=== PATIENT | male | born 1970 | race Caucasian/White ===

== ENCOUNTER 2018-07-28 18:56 | Emergency (ER) | payer OTHER ==
[~2018-07-28] VITALS: Wt 117.0 kg
[2018-07-28] MEDS ORDERED: LORAZEPAM 2 MG INJ IM STA (22:19)
--- NOTE | 2018-07-28 23:06 | ERD ---
ER Documentation Chief Complaint Chief Complaint PT STATES HI HPI 48-year-old man with a history of psychiatric illness including anxiety kicked out of his boarding care facility for leaving his bedroom after 8 PM, which is seems his against the facilities rules. He denies suicidal homicidal ideation, no fevers or chills, no chest pain or shortness of breath. Patient states he is compliant with his medications. ROS All systems reviewed and are negative except as per history of present illness. Medications Home Meds Reported Medications Lurasidone Hcl (LATUDA) 80 Mg Tablet, 80 MG PO DAILY, #30 TAB 07/29/18 Multivitamins* (Theragran*) 1 Tab Tab, 1 TAB PO DAILY, TAB 07/29/18 Divalproex Sodium* (Divalproex Sodium*) 500 Mg Tablet.dr, 500 MG PO QID, #120 TAB 07/29/18 Benztropine Mesylate* (Cogentin*) Unknown Strength Tab, PO BID, TAB 07/29/18 Aspirin Ec (Aspir 81) 81 Mg Tablet.dr, 81 MG PO DAILY, #30 TAB 07/29/18 Metformin* (Glucophage*) 1,000 Mg Tablet, 1000 MG PO BID, #60 TAB 07/29/18 Allergies Allergies: Coded Allergies: No Known Allergy (Unverified , 07/28/18) PMhx/Soc Anxiety FmHx Family History: No diabetes Physical Exam Vitals Vital Signs Date Temp Pulse Resp B/P (MAP) Pulse Ox O2 O2 Flow FiO2 Time Delivery Rate 07/28/18 97.2 97 18 157/93 99 19:20 (114) Physical Exam Const: Anxious, afebrile Head: Atraumatic Eyes: Normal Conjunctiva ENT: Normal External Ears, Nose and Mouth. Neck: Full range of motion. No meningismus. Resp: Clear to auscultation bilaterally Cardio: Regular rate and rhythm, no murmurs Abd: Soft, non tender, non distended. Normal bowel sounds Skin: No petechiae or rashes Back: No midline or flank tenderness Ext: No cyanosis, or edema Neur: Awake and alert x3, no focal deficits or facial asymmetry Psych: Anxious Result Diagram: 07/28/18223507/28/182235 Results 24 hrs Laboratory Tests Test 07/28/18 22:36 07/28/18 22:50 White Blood Count 12.1 10^3/ul Red Blood Count 4.75 10^6/ul Hemoglobin 15.0 g/dl Hematocrit 43.1 % Mean Corpuscular Volume 90.7 fl Mean Corpuscular Hemoglobin 31.6 pg Mean Corpuscular Hemoglobin Concent 34.8 g/dl Red Cell Distribution Width 11.9 % Platelet Count 233 10^3/UL Mean Platelet Volume 9.8 fl Immature Granulocytes % 0.900 % Neutrophils % 69.3 % Lymphocytes % 21.2 % Monocytes % 6.6 % Eosinophils % 1.6 % Basophils % 0.4 % Nucleated Red Blood Cells % 0.0 /100WBC Immature Granulocytes # 0.110 10^3/ul Neutrophils # 8.4 10^3/ul Lymphocytes # 2.6 10^3/ul Monocytes # 0.8 10^3/ul Eosinophils # 0.2 10^3/ul Basophils # 0.1 10^3/ul Nucleated Red Blood Cells # 0.0 10^3/ul Sodium Level 134 mmol/L Potassium Level 4.4 mmol/L Chloride Level 96 mmol/L Carbon Dioxide Level 29 mmol/L Anion Gap 9 Blood Urea Nitrogen 11 mg/dl Creatinine 0.81 mg/dl Est Glomerular Filtrat Rate mL/min > 60 mL/min Glucose Level 215 mg/dl Calcium Level 9.5 mg/dl Total Bilirubin 0.5 mg/dl Direct Bilirubin 0.00 mg/dl Indirect Bilirubin 0.5 mg/dl Aspartate Amino Transf (AST/SGOT) 28 IU/L Alanine Aminotransferase (ALT/SGPT) 21 IU/L Alkaline Phosphatase 75 IU/L Total Protein 7.7 g/dl Albumin 4.1 g/dl Globulin 3.60 g/dl Albumin/Globulin Ratio 1.13 Salicylates Level < 1.0 mg/dl Acetaminophen Level < 10.0 ug/ml Ethyl Alcohol Level < 10.0 mg/dl Urine Color STRAW Urine Clarity CLEAR Urine pH 7.0 Urine Specific [place] 1.003 Urine Ketones NEGATIVE mg/dL Urine Nitrite NEGATIVE mg/dL Urine Bilirubin NEGATIVE mg/dL Urine Urobilinogen NEGATIVE mg/dL Urine Leukocyte Esterase NEGATIVE Angus/ul Urine Microscopic RBC 2 /HPF Urine Microscopic WBC 0 /HPF Urine Hemoglobin 1+ mg/dL Urine Glucose NEGATIVE mg/dL Urine Total Protein NEGATIVE mg/dl Urine Opiates Screen Negative Urine Barbiturates Negative Urine Amphetamines Screen Negative Urine Benzodiazepines Screen Negative Urine Cocaine Screen Negative Urine Cannabinoids Negative Current Medications Medications Dose Sig/Luis Alberto Start Time Status Last (Trade) Ordered Route PRN Stop Time Admin Dose Reason Admin Lorazepam 1 mg ONCE STAT 07/28/18 DC 07/28/18 (Ativan) IM 22:19 23:15 07/28/18 22:21 Procedures/MDM I administered lorazepam 1 mg IM x1 for patient's anxiety. CBC and electrolytes were normal, liver function tests normal, drug screen negative, alcohol Tylenol aspirin levels negative. Urinalysis negative for infection. Patient will require social worker palliative care consultation in the morning for placement to another facility Observation Note: Time: 6 hours Family Hx: No Hypertension Evaluation: Multiple exams showed improving symptoms and no evidence of decompensated psychiatric illness. Patient's vital signs are normal and he will be discharged after social worker palliative care consultation and recommendations Differential diagnoses considered, included but not limited to acute coronary syndrome, pulmonary embolism, aortic dissection, abdominal aortic aneurysm, sepsis, stroke, meningitis, encephalitis, pneumonia, appendicitis, cholecystitis, bowel obstruction, pyelonephritis, nephrolithiasis, cystitis, as well as metabolic, hematologic, and electrolyte abnormalities. As well as abscess, cellulitis, fractures, and dislocations. Patient feels much better at this time, and vital signs are normal, symptoms have improved. I did give strict instructions to return to the ED if symptoms continue or worsen, patient will otherwise follow-up with primary care physician. Patient understood instructions and agreed to plan. Disclaimer: Inadvertent spelling and grammatical errors are likely due to E HR/dictation software use and do not reflect on the overall quality of patient care. Also, please note that the electronic time recorded on this note does not necessarily reflect the actual time of the patient encounter. Departure Diagnosis: Primary Impression: Anxiety Condition: Good TAVON CERRATO MD Jul 28, 2018 23:06
[2018-07-29] MEDS ORDERED: MTF1000T PO (00:17)
[2018-07-29] MEDS ORDERED: DIVA-16 PO (00:21)
[2018-07-29] MEDS ORDERED: BENZ1TAB7 PO (00:21)
[2018-07-29] MEDS ORDERED: ASPI-535 PO (00:21)
[2018-07-29] MEDS ORDERED: MULTI PO (00:22)
[2018-07-29] MEDS ORDERED: LURA80TA PO (00:23)
[2018-07-29 05:00] VITALS: BP 124/65; PULSE 85; RESP 18
== END 2018-07-29 09:15 | disposition home or self-care (01) ==
LOC: E/R 18:56
DX: F41.9 Anxiety disorder, unspecified (principal); R40.2142 Coma scale, eyes open, spontaneous, at arrival to emergency department; R40.2362 Coma scale, best motor response, obeys commands, at arrival to emergency department; R40.2252 Coma scale, best verbal response, oriented, at arrival to emergency department; Z79.82 Long term (current) use of aspirin; Z79.84 Long term (current) use of oral hypoglycemic drugs
CPT/HCPCS: 80053; 80307; 81001; 85025; 96372; J2060; Z7502